=== PATIENT | male | born 1955 | race Caucasian/White ===

== ENCOUNTER → 2016-11-13 | Outpatient (CLI) | payer BC ==
[~2016-11-13] MED LIST: ADVIL,NUPRIN,M200 MG PO; FENOFIBRATE134 M1 PO; FLUOXETINE HCL20 MG PO; LISINOPRIL10 MG PO; NORTRIPTYLINE H25 MG PO; TIZANIDINE HCL4 M1 PO; TUMS X-STR300 MG PO
== END | disposition home or self-care (01) ==
LOC: CDC 08:11
DX: M17.11 Unilateral primary osteoarthritis, right knee (principal); M23.41 Loose body in knee, right knee; M23.221 Derangement of posterior horn of medial meniscus due to old tear or injury, right knee
CPT/HCPCS: 93000

== ENCOUNTER 2017-05-28 14:55 | Emergency (ER) | payer BC ==
[~2017-05-28] VITALS: Ht 182.9 cm; Wt 87.8 kg
[2017-05-28 15:45] LABS: HEMATOCRIT 42.2 % (38.0-50.0); HEMOGLOBIN 14.6 G/DL (12.5-16.6); MCH 28.4 PG (29.0-34.0); MCHC 34.6 G/DL (30.0-36.0); MCV 82.1 FL (86-99); PLATELET COUNT 317 K/uL (156-360); RBC DIS.WIDTH-CV 12.9 % (11.8-14.6); RBC DIS.WIDTH-SD 38.8 % (39-53); RED BLOOD COUNT 5.14 M/uL (4.00-5.50); WHITE BLOOD COUNT 11.4 K/uL (4.1-10.2)
[2017-05-28] MEDS ORDERED: NORVASC5 MG PO (15:46)
[2017-05-28 15:53] LABS: CHLORIDE 105 mEq/L (99-109); POTASSIUM 3.8 mEq/L (3.7-5.4); SODIUM 137 mEq/L (136-147)
[2017-05-28 15:54] LABS: GLUCOSE 106 mg/dL (70-99)
[2017-05-28 15:58] LABS: CREATININE 1.4 mg/dL (0.6-1.3); GFR ESTIMATE (CALCULATED) 55 mL/min/ (58.99-99999)
[2017-05-28 15:59] LABS: UREA NITROGEN (BUN) 31 mg/dL (9-23)
[2017-05-28 17:18] LABS: C-REACTIVE PROTEIN < 1.0 MG/L (0-10)
[2017-05-28] MEDS ORDERED: INDOCIN25 MG PO (18:10)
[2017-05-28 18:32] VITALS: BP 157/108
== END 2017-05-28 18:32 | disposition home or self-care (01) ==
LOC: EME 14:55
PROVIDERS: Nurse Practitioner Family
DX: I73.00 Raynaud's syndrome without gangrene (principal); M54.2 Cervicalgia; G89.29 Other chronic pain; I10 Essential (primary) hypertension; E78.5 Hyperlipidemia, unspecified
CPT/HCPCS: 80048; 85027; 86140; 93931